=== PATIENT | male | born 1945 | race Caucasian/White ===

== ENCOUNTER 2018-09-01 12:44 | Observation (INO) | payer OTHER ==
--- NOTE | 2018-09-01 13:52 | EDPHY ---
HPI/HX/ROS/PE/MDM Narrative: CHIEF COMPLAINT: Left-sided facial numbness HPI: This patient is a 73 year old male with history of hypertension and hyperlipidemia. This morning, he was at an event and noted a metallic taste in his mouth. He then developed left sided-facial numbness "like I had a shot of novocaine". This subsided, but recurred while on the way home. At its most severe, it radiated down the left side of his neck, but this has resolved. Currently he continues to feel some numbness from cheek to chin. He denies any headache or visual changes. No numbness or weakness in legs. No chest pain or shortness of breath. He endorses neuropathy in his feet which has been ongoing for two years. He denies any history of diabetes. He denies any recent illness or trauma. REVIEW OF SYSTEMS: A comprehensive 10 system review of systems is otherwise negative aside from elements mentioned in the history of present illness and medical decision making. PMH: Hypertension, hyperlipidemia. SOCIAL HISTORY: . Retired. Does not abuse tobacco, drugs, or alcohol. PHYSICAL EXAM: General:Patient is alert, in no acute distress. ENT:Eyes are normal to inspection. ENT inspection normal. Neck: Normal inspection. Full range of motion. Respiratory:No respiratory distress. Breath sounds normal bilaterally. Cardiovascular: Regular rate and rhythm. Strong peripheral pulses. Normal cap refill. Abdomen:The abdomen is nontender to palpation. There are no peritoneal signs. There are normal bowel sounds. Back: Normal to inspection. No tenderness to palpation. Skin: Normal color. No rash. Warm and dry. Extremities: Normal appearance. Full range of motion. Neuro: Oriented x3. Subjective mild decrease in sensation on left face, otherwise normal sensory function. Normal motor function. Normal finger-to- nose. No pronator drift. ED Course: 73 y/o male presents with left-sided facial numbness beginning this morning. On exam, the patient has subjective mild decrease in sensation on left face, but is otherwise neurologically intact. Plan for CT head, CTA head/neck, EKG, labs including CBC, chemistries, POC troponin, i-stat chemistries. EKG was ordered and interpreted by myself. Please see Superproton[employer] system for official reading. 14:[address] Orellana, radiologist. CT shows cerebrovascular atherosclerosis. CTAs pending. 14:[address] Orellana, radiologist. CTA shows moderate to severe stenosis of the left ICA without complete occlusion. Otherwise largely unremarkable. 15:[address] Thompson, neurologist. We agree that the patient's NIH scale is low to the point that TPA is not indicated at this time. Dr. Thompson recommends MRI and admission for further evaluation. 15:18 Reassessed patient. Discussed imaging results. We discussed the plan for admission and further workup. He is amenable to this. 15:36 Spoke with hospitalist service. Dr. Farrell accepts admission for facial numbness. - Data Points Imaging Results: Imaging Impressions Head CT 09/01/18 00:00 Impression: 1. Cerebrovascular atherosclerosis. 2. Otherwise normal CT brain without contrast. 3. Consider MRI of the brain, if there is continued clinical concern. Findings and recommendations discussed with Emergency Department physician, Kris Marte MD at 14:45 hour, 09/01/2018. Final report concurs with initial preliminary interpretation. Head CTA 09/01/18 13:53 Impression: 1. Severe atherosclerotic stenosis of the proximal left internal carotid artery approximately 70-90%. Recommend follow-up cardiovascular surgery consult. 2. Mild atherosclerotic disease right carotid bulb without significant stenosis. 3. Atherosclerotic disease involving the left vertebral artery proximally and distally without complete occlusion. 4. Dominant patent right vertebral artery and patent basilar artery. Measurement of carotid stenosis is based on the residual internal carotid diameter with [place] Symptomatic Carotid Endarterectomy Trial (NASCET) based stenosis levels. CT Angiogram of the Brain Clinical Indications: left-sided facial numbness Technique: CT angiogram of the brain and neck was performed with the uneventful intravenous administration of 85 mL Isovue-370 contrast. Multiplanar reconstructions including 3D reconstructions performed and evaluated on [employer] workstation in order to better evaluate the [place] vessels. Images were manipulated by the radiologist at the computer workstation. Dose reduction techniques were utilized. Findings: Major vessels of the [place] are adequately displayed, demonstrating no evidence of aneurysm, vascular malformation, flow-limiting stenosis, or occlusion. Bilateral cavernous internal carotid arteries and vertebrobasilar system demonstrates no evidence of flow-limiting stenosis, aneurysm, occlusion, or dissection. Superior sagittal sinus, transverse sinuses , and major veins demonstrate no evidence of intraluminal thrombi. Mild cerebrovascular calcified plaque bilateral cavernous internal carotid arteries. Impression: 1. Cerebrovascular atherosclerosis. 2. No intraluminal thrombi or complete occlusion of the [place] vessels. Findings and recommendations discussed with Emergency Department physician, Kris Marte MD at 1450 hour, 09/01/2018. Final report concurs with initial preliminary interpretation. Neck CTA 09/01/18 13:53 Impression: 1. Severe atherosclerotic stenosis of the proximal left internal carotid artery approximately 70-90%. Recommend follow-up cardiovascular surgery consult. 2. Mild atherosclerotic disease right carotid bulb without significant stenosis. 3. Atherosclerotic disease involving the left vertebral artery proximally and distally without complete occlusion. 4. Dominant patent right vertebral artery and patent basilar artery. Measurement of carotid stenosis is based on the residual internal carotid diameter with [place] Symptomatic Carotid Endarterectomy Trial (NASCET) based stenosis levels. CT Angiogram of the Brain Clinical Indications: left-sided facial numbness Technique: CT angiogram of the brain and neck was performed with the uneventful intravenous administration of 85 mL Isovue-370 contrast. Multiplanar reconstructions including 3D reconstructions performed and evaluated on [employer] workstation in order to better evaluate the [place] vessels. Images were manipulated by the radiologist at the computer workstation. Dose reduction techniques were utilized. Findings: Major vessels of the [place] are adequately displayed, demonstrating no evidence of aneurysm, vascular malformation, flow-limiting stenosis, or occlusion. Bilateral cavernous internal carotid arteries and vertebrobasilar system demonstrates no evidence of flow-limiting stenosis, aneurysm, occlusion, or dissection. Superior sagittal sinus, transverse sinuses , and major veins demonstrate no evidence of intraluminal thrombi. Mild cerebrovascular calcified plaque bilateral cavernous internal carotid arteries. Impression: 1. Cerebrovascular atherosclerosis. 2. No intraluminal thrombi or complete occlusion of the [place] vessels. Findings and recommendations discussed with Emergency Department physician, Kris Marte MD at 1450 hour, 09/01/2018. Final report concurs with initial preliminary interpretation. Brain MRI 09/01/18 15:36 Impression: Normal MRI of the brain without contrast. Findings and recommendations discussed with Emergency Department physician, Kris Marte MD at 17:15 hour, 09/01/2018. Final report concurs with initial preliminary interpretation. Imaging: Discussed imaging studies w/ [employer] sales consultant Radiologist Laboratory Results: Laboratory Results 09/01/18 13:30 09/01/18 13:30 09/01/18 09/01/18 09/01/18 14:07 13:39 13:30 WBC RBC Hgb POC Hgb 16.0 gm/dL gm/dL (13.7-17.5) Hct POC Hct 47 % % (40-51) MCV MCH MCHC RDW Plt Count MPV Neut % (Auto) Lymph % (Auto) Cherry % (Auto) Eos % (Auto) Baso % (Auto) Nucleat RBC Rel Count Absolute Neuts (auto) Absolute Lymphs (auto) Absolute Monos (auto) Absolute Eos (auto) Absolute Basos (auto) Absolute Nucleated RBC Immature Gran % Immature Gran # POC Sodium 142 mEq/L mEq/L (135-145) Sodium 139 mEq/L mEq/L (135-145) POC Potassium 4.3 mEq/L mEq/L (3.3-5.0) Potassium 4.5 mEq/L mEq/L (3.5-5.2) POC Chloride 107 mEq/L mEq/L (97-110) Chloride 105 mEq/L mEq/L (97-110) Carbon Dioxide 24 mEq/l mEq/l (22-31) POC Total CO2 25 mEq/L mEq/L (22-31) Anion Gap 10 mEq/L mEq/L (6-14) POC BUN 25 mg/dL H mg/dL (7-23) BUN 26 mg/dL H mg/dL (7-23) Creatinine 1.3 mg/dL mg/dL (0.7-1.3) POC Creatinine 1.4 mg/dL H mg/dL (0.7-1.3) Estimated GFR 54 Glucose 123 mg/dL H mg/dL (70-100) POC Glucose 128 mg/dL H mg/dL (70-100) Calcium 9.8 mg/dL mg/dL (8.5-10.4) POC Troponin I 0.00 ng/mL ng/mL (0.00-0.08) 09/01/18 13:30 WBC 6.46 10^3/uL 10^3/uL (3.80-9.50) RBC 4.90 10^6/uL 10^6/uL (4.40-6.38) Hgb 15.3 g/dL g/dL (13.7-17.5) POC Hgb Hct 45.4 % % (40.0-51.0) POC Hct MCV 92.7 fL fL (81.5-99.8) MCH 31.2 pg pg (27.9-34.1) MCHC 33.7 g/dL g/dL (32.4-36.7) RDW 14.1 % % (11.5-15.2) Plt Count 215 10^3/uL 10^3/uL (150-400) MPV 10.9 fL fL (8.7-11.7) Neut % (Auto) 52.9 % % (39.3-74.2) Lymph % (Auto) 33.3 % % (15.0-45.0) Cherry % (Auto) 10.7 % % (4.5-13.0) Eos % (Auto) 1.7 % % (0.6-7.6) Baso % (Auto) 1.1 % % (0.3-1.7) Nucleat RBC Rel Count 0.0 % % (0.0-0.2) Absolute Neuts (auto) 3.42 10^3/uL 10^3/uL (1.70-6.50) Absolute Lymphs (auto) 2.15 10^3/uL 10^3/uL (1.00-3.00) Absolute Monos (auto) 0.69 10^3/uL 10^3/uL (0.30-0.80) Absolute Eos (auto) 0.11 10^3/uL 10^3/uL (0.03-0.40) Absolute Basos (auto) 0.07 10^3/uL 10^3/uL (0.02-0.10) Absolute Nucleated RBC 0.00 10^3/uL 10^3/uL (0-0.01) Immature Gran % 0.3 % % (0.0-1.1) Immature Gran # 0.02 10^3/uL 10^3/uL (0.00-0.10) POC Sodium Sodium POC Potassium Potassium POC Chloride Chloride Carbon Dioxide POC Total CO2 Anion Gap POC BUN BUN Creatinine POC Creatinine Estimated GFR Glucose POC Glucose Calcium POC Troponin I Medications Given: Sodium Chloride (Ns) 1,000 mls @ 100 mls/hr IV CONT CRUZITO Stop: 09/02/18 02:14 Last Admin: 09/01/18 17:29 Dose: 1,000 mls Point of Care Test Results: Chemistry 09/01/18 09/01/18 14:07 13:39 POC Sodium 142 mEq/L mEq/L (135-145) POC Potassium 4.3 mEq/L mEq/L (3.3-5.0) POC Chloride 107 mEq/L mEq/L (97-110) POC Total CO2 25 mEq/L mEq/L (22-31) POC BUN 25 mg/dL H mg/dL (7-23) POC Creatinine 1.4 mg/dL H mg/dL (0.7-1.3) POC Glucose 128 mg/dL H mg/dL (70-100) POC Troponin I 0.00 ng/mL ng/mL (0.00-0.08) ISTAT H&H 09/01/18 13:39 POC Hgb 16.0 gm/dL gm/dL (13.7-17.5) POC Hct 47 % % (40-51) General Time Seen by Provider: 09/01/18 13:26 Initial Vital Signs: Initial Vital Signs Temperature (C) 36.8 C 09/01/18 12:50 Heart Rate 76 09/01/18 12:50 Respiratory Rate 16 09/01/18 12:50 Blood Pressure 156/90 H 09/01/18 12:50 O2 Sat (%) 92 09/01/18 12:50 O2 Delivery Mode Room Air Allergies/Adverse Reactions: No Known Allergies Allergy (Unverified 09/01/18 12:48) Home Medications: Medication Instructions Recorded Aspirin EC [Aspirin EC 81 mg (*)] 81 mg PO HS 09/01/18 Atorvastatin Calcium [Lipitor 10 10 mg PO HS 09/01/18 mg (*)] Cetirizine [ZyrTEC 10 mg (*)] 10 mg PO HS 09/01/18 Gabapentin [Neurontin 300 MG (*)] 600 mg PO HS 09/01/18 Herbals/Supplements -Info Only 1 ea PO DAILY 09/01/18 Lisinopril [Zestril 40 mg (*)] 40 mg PO DAILY 09/01/18 [place]-3 Fatty Acids [Fish Oil 1000 1,000 mg PO BID 09/01/18 mg (*)] Omeprazole 40 mg PO DAILY 09/01/18 Departure - Departure Disposition: [facility] Report Scribed for: Kris Marte Report Scribed by: Idania Sparks Date of Report: 09/01/18 Time of Report: 13:52 Physician Review and Approval Statement: Portions of this note were transcribed by an ED scribe. I personally performed the history, physical exam, and medical decision making; and confirm the accuracy of the information in the transcribed note.
[2018-09-01 14:06] LABS: PLATELET COUNT 215 10^3/uL (150-400)
[2018-09-01] MEDS ORDERED: IOPAMIDOL (ISOVUE 370) 100 ML BTL IV ONE (14:19)
[2018-09-01] MEDS ORDERED: LABETALOL HCL 5 MG/ML 20 ML MDV IVP PRN (15:39)
[2018-09-01] MEDS ORDERED: ONDANSETRON 4 MG/2 ML VIAL IVP PRN (15:39)
[2018-09-01] MEDS ORDERED: ACETAMINOPHEN 325 MG TAB PO PRN (15:39)
[2018-09-01] MEDS ORDERED: ONDANSETRON DISINTEGRATING 4 MG TAB PO PRN (15:39)
[2018-09-01] MEDS ORDERED: NS 1,000 ML IV SCH (16:15)
--- NOTE | 2018-09-01 16:34 | GHP ---
[f rep st] HISTORY AND PHYSICAL DATE OF ADMISSION: 09/01/2018 CHIEF COMPLAINT: Left facial numbness. HISTORY OF PRESENT ILLNESS: A 73-year-old male with hypertension, hyperlipidemia, obesity, presenting with left facial numbness. He and his live in [place] in the winter, and were headed through [place] to visit their son. They were at their grandson's [facility] [employer] [facility] at 10 a.m. and he noticed a metallic taste along with left facial numbness, which he describes as feeling after getting Novocain from the dentist. Symptoms improved, however, an hour later involved the whole left side of his face. Denies dysarthria, aphasia, or focal weakness. Reports feeling lightheaded yesterday. Denies chest pain, shortness of breath, nausea, vomiting, or diarrhea. He says numbness is nearly resolved during my interview. CTA demonstrated [id number] left carotid artery stenosis 70% to 90%. REVIEW OF SYSTEMS: I completed a 10-point review of systems and negative except as noted in HPI. PAST MEDICAL HISTORY: Left shoulder issues, hypertension, hyperlipidemia, obesity. PAST SURGICAL HISTORY: Left total hip arthroplasty, right ureter, lumbar spine x2, tonsillectomy, knee arthroscopic surgery. SOCIAL HISTORY: Lives in [place] in the winter and [place] the rest of time. Smoked remotely in college. Drinks 1 to 2 beers a day. FAMILY HISTORY: Paternal grandfather stroke at age 80. Mother with CVA. Dad with hyperlipidemia and hypertension. ALLERGIES: None. HOME MEDICATIONS: Zyrtec, vitamin B12, lisinopril, gabapentin, fish oil, atorvastatin. PHYSICAL EXAMINATION: VITAL SIGNS: Temperature 36.4 blood pressure 166/86, heart rate in the 60s, respirations 16, and 95% on room air. GENERAL: He is well appearing, obese, no acute distress. HEENT: PERRLA. Moist mucous membranes. CARDIOVASCULAR: Regular rate and rhythm. No murmurs, gallops, or rubs. LUNGS: Clear. ABDOMEN: Obese, soft, nontender, nondistended. Positive bowel sounds. GENITOURINARY: No [place]. MUSCULOSKELETAL: 5/5 upper and lower extremity strength. NEUROLOGICAL: 2 through 12 intact. Left facial numbness noted with soft touch. Negative pronator drift. No facial droop. PSYCHIATRIC: Alert and oriented x3. LABORATORY DATA: WBC 6.4, hemoglobin 15, hematocrit 45, platelets 215. Sodium 142, potassium 4.3, chloride 107, carbon dioxide 24, BUN 25, creatinine is 1.4 ( I do not have baseline), glucose 128. Troponin 0.0. Head CT: Cerebrovascular atherosclerosis. EKG personally reviewed by me: Low voltage, normal sinus rhythm, T-wave inversion in lead III and flattening in aVF. Head and neck CTA: Severe atherosclerotic stenosis of proximal left internal carotid artery 70% to 90%. Mild atherosclerotic disease right carotid bulb without significant stenosis. ASSESSMENT AND PLAN: 1. Transient ischemic attack: Suspect due to left internal carotid artery stenosis. MRI brain and echocardiogram pending. Monitor on telemetry. Physical Therapy, Occupational Therapy, and Speech evaluations. Check lipid panel. Neurology and Surgery consult. 2. Hypertension: Hold lisinopril with acute kidney injury. 3. Acute kidney injury: Endorsed lightheadedness. Likely dehydrated. We will give IV fluids and repeat in the morning. 4. Hyperlipidemia: Statin. 5. Disposition: Patient warrants observation admission for transient ischemic attack warranting further evaluation and surgical consult. /[id number]/MODL MTDD
[2018-09-01] MEDS: OMEGA-3 FATTY ACIDS 1,000 MG CAP PO SCH (20:42)
--- NOTE | 2018-09-01 20:59 | GCON ---
[f rep st] CONSULTATION DATE OF CONSULTATION: 09/01/2018 REFERRING PHYSICIAN: Sanna Farrell MD REASON FOR EVALUATION: Symptomatic carotid stenosis. HISTORY OF PRESENT ILLNESS: 73-year-old male traveling en route from [place] back home to [place], [place], where he lives, presents to the emergency room today with a 2-hour prodrome of left facial numbness along with left jaw drooping as witnessed by family members. He denies complaints of headaches or visual changes. He denies any amaurosis type symptoms. He denies any lateralizing right side neurologic symptoms. He denies any difficulty with swallowing, word-finding or comprehension. He denied associated chest pains or shortness of breath. He denies any antecedent similar symptoms. The patient is right-handed. He does have a significant history for hypertension. Upon ER arrival, his facial numbness had essentially resolved. He was still noted to have small left lower lip weakness. PAST MEDICAL HISTORY: 1. Hypertension. 2. Hyperlipidemia. PAST SURGICAL HISTORY: Left total hip arthroplasty, right ureteral reconstruction, post remote trauma, lumbar spine instrumentation, tonsillectomy , knee arthroscopy. HOME MEDICATIONS: 1. Atorvastatin. 2. Lisinopril. 3. Fish oil. 4. Gabapentin. 5. Vitamin B12. 6. Zyrtec. 7. Aspirin. ALLERGIES: No known drug allergies. SOCIAL HISTORY: The patient is retired. No significant alcohol. He has not smoked in many years. REVIEW OF SYSTEMS: Notable for acute GI complaints only. The patient is generally ambulatory, without exertional dyspnea, claudication, or rest pain symptoms. PHYSICAL EXAMINATION: VITAL SIGNS: Temperature 36.7, blood pressure 157/88, heart rate 73, respirations 16. GENERAL: Patient is alert appropriate, comfortable at present time, anicteric. HEENT: Pupils are equally round, reactive to light and accommodation. Extraocular muscles are intact. Smile slightly asymmetric with subtle left lower jaw drooping. Tongue midline. Speech normal. HEART: Regular without murmurs. LUNGS: Clear bilaterally. ABDOMEN: Soft, slightly obese, nontender. No pulsatile masses. No bruits. 2 + radial, brachial, carotid, femoral, popliteal, and posterior tibial pulses, bilateral dorsalis pedis pulses not palpable. NEUROLOGIC: Exam notable for left angle of jaw weakness; otherwise, cranial nerves 2-12 noted intact. Slight diminished sensation of left foot and lower leg. Normal sensation right upper and lower extremity. Cervical, thoracic, and lumbar spines nontender. IMAGING: CT images were directly reviewed on [facility], as well as brain MRI. Approximately 70% to 90% left ICA stenosis with mostly calcified plaque, patent bilateral vertebral arteries. Head CT unremarkable for acute infarct. Brain MRI unremarkable. LABS: WBC 6, Hb 15, PLT 215. Na 142, K 4.3, CL 107, BUN 25, Cr 1.4 IMPRESSION: Symptomatic left carotid stenosis with transient ischemic attack symptoms. Elevated Creatinine. RECOMMENDATIONS: Would recommend consideration for left carotid endarterectomy once patient returns home to [place] given his current self-limited neurologic event in this lower risk patient with symptomatic high-grade left carotid stenosis. He is currently on best medical therapy, including lipid-lowering agent and aspirin, as well as blood pressure management. I would also recommend consideration for a cardiac risk assessment as well upon return to home. No further acute surgical recommendations necessary at this time. These findings and recommendations were discussed in detail with the patient at bedside. All of his questions were entertained. Please call if I can be of further assistance while the patient remains in [place]. Copies of his imaging and records will be provided for him to bring to his local providers. IV hydration being provided with repeat labs in am regarding his elevated creatinine. /[id number]/MODL MTDD
[2018-09-01] MEDS ORDERED: CETIRIZINE 10 MG TAB PO SCH (21:00)
[2018-09-01] MEDS ORDERED: ATORVASTATIN CALCIUM 10 MG TAB PO SCH (21:00)
[2018-09-01] MEDS ORDERED: GABAPENTIN 300 MG CAP PO SCH (21:00)
[2018-09-01] MEDS ORDERED: ASPIRIN EC 81 MG TAB PO SCH (21:00)
[2018-09-02] MEDS: OMEGA-3 FATTY ACIDS 1,000 MG CAP PO SCH (08:13)
[2018-09-02] MEDS ORDERED: PANTOPRAZOLE SODIUM 40 MG TAB PO SCH (09:00)
[2018-09-02] MEDS ORDERED: Herbals/Supplements -Info Only PO SCH (09:00)
[2018-09-02 11:38] VITALS: BP 131/85
--- NOTE | 2018-09-02 13:11 | GCON ---
[f rep st] CONSULTATION NEUROLOGY CONSULT DATE OF CONSULTATION: 09/02/2018 REFERRING PHYSICIAN: Sanna Farrell MD CHIEF COMPLAINT: Left facial numbness. HISTORY OF PRESENT ILLNESS: Mr. Wu is a very pleasant gentleman who lives in the [facility], and was traveling through when he developed left facial numbness yesterday. The initial symptoms were a funny taste in his mouth and then he progressively developed a sensation of numbness over his left face that felt like "Novocain." It came on fairly slowly and then lasted about 2 hours and then slowly resolved. There was no headache associated with this. He came to the emergency department and had an acute evaluation. The patient had a head CT without contrast which showed no acute findings. CT angio of the head showed cerebral vascular atherosclerosis without large vessel occlusion. CTA of the neck showed severe atherosclerotic stenosis of the proximal left internal carotid artery, approximately 70% to 90%. The right carotid bulb had mild atherosclerosis without significant stenosis. He also has some atherosclerotic stenosis in the left vertebral artery. His symptoms resolved as noted above and he has had no recurrent symptoms overnight. At baseline, he takes a baby aspirin along with statin and blood pressure medication. He follows with a primary care physician in [place], [place]. REVIEW OF SYSTEMS: A 10-point review of systems was done and only pertinent to the HPI. For past medical history, social history, family history, home medications see Dr. Farrell's H and P. He was seen by Dr. Manzo of vascular surgery regarding his carotid stenosis as well. Please see his consult note for details. PHYSICAL EXAMINATION: VITAL SIGNS: Blood pressure 131/85, temperature 36.7, heart rate 60. GENERALLY: This patient is very pleasant, no acute distress. He was getting echocardiogram during my exam. Therefore, it was somewhat limited. NEUROLOGIC: Higher mental function is normal. No aphasia. Cranial nerve exam is normal 2 through 7 and 12. There is no longer any facial numbness. Motor exam is normal in terms of strength in all 4 limbs. No abnormal sensory exam in terms of light touch to his limbs. Coordination is normal in upper and lower extremities. IMPRESSION/PLAN: 1. Transient neurologic symptoms, resolved. 2. Left internal carotid artery stenosis (70% to 90%). The patient's clinical syndrome of transient left facial numbness is not in the left internal carotid artery vascular territory. Therefore, his left ICA stenosis would be considered asymptomatic. 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 The patient is getting echocardiogram now. Going forward, if there are no significant abnormalities on echocardiogram ( such as intracardiac thrombus, etc.), then the plan is the patient would like to discharge home and get back to [place] for medical care. We will discharge him on dual anti-platelet therapy for additional vascular prophylaxis. He will be on aspirin 81 mg daily plus Plavix 75 mg daily. We discussed potential risks, benefits and alternatives of dual anti-platelet therapy including the risk of bleeding and bruising. He will continue statin and antihypertensive medications. He has agreed to the plan of following with his PCP and get a referral to Cardiology and Neurology along with Vascular Surgery once he gets back to [place]. He will need consideration for endarterectomy of his left ICA stenosis , which would be considered asymptomatic at this point. He also needs further monitoring for possible right hemisphere TIA with a 30- day event monitor to screen for paroxysmal atrial fibrillation; if that is negative, consider an implantable loop monitor for ongoing PAF surveillance. No further recommendations now. The plan was discussed in detail with the patient, the hospitalist and we will follow up as needed. Please do not hesitate to call if there are any questions regarding his echocardiogram or anything in general or changes in this patient's neurology status. We appreciate the consultation. Seventy total minutes floor time today; over 50% in direct counseling and coordination of care with this patient. /[id number]/MODL MTDD
--- NOTE | 2018-09-02 14:59 | ECHO ---
[email or web address] [address] [address] Main: [phone] Echocardiography Examination Transthoracic Name: LALO MIRAMONTES MR#: [id number] Study Date: 09/02/2018 Study Time: 12:12 PM Date of : 1945 Age: 73 year(s) Height: 180.3 cm (71 in.) Weight: 102.06 kg (225 lb.) BSA: 2.22 m2 Gender: Male Examination: Echo with Agitated Saline Contrast: Image Quality: Technically Difficult Rhythm: Heart Rate: BP: 131 mmHg/85 mmHg Indication: TIA Procedure Staff Referring Physician: Digital Solutions Architect: Sanna Hoffman [facility] Reading Physician: Quinton Ryan MD Requesting Provider: Ordering Physician: Sanna Farrell Indication: TIA Technically difficult due to body habitus Measurements Chambers AV/MV Label Value Normal Value Label Value Normal Value LVOTd 2.4 cm (1.9cm - 2.1cm) AV PGmax 5 mmHg LVOT VTI 17.6 cm (18cm - 22cm) AV PGmean 3 mmHg LVDd, 2D 5 cm (4.2cm - 5.9cm) AV Vmax 1.07 m/s LVDs, 2D 3.1 cm (2.1cm - 4cm) JOSEPH (VTI) 3.3 cm2 IVSd, 2D 1.1 cm (0.6cm - 1.1cm) MV E Vmax 0.56 m/s LVPWd, 2D 1.1 cm (0.6cm - 1cm) MV A Vmax 0.76 m/s LVEF, 2D 67 % (54% - 74%) MV E/A 0.74 LVOT PGmean 2 mmHg MV E/E' lateral 7 LVOT Vmean 0.65 m/s MV E/E' septal 9 (0.45 - 1.25) RVDd, 2D 3.7 cm (1.9cm - 3.8cm) MV DT 299 ms LA Volume, BP 42 ml (18ml - 58ml) MV E' septal 0.06 m/s LADs, 2D 3.5 cm (3cm - 4cm) MV PHT 0.09 s LAESV index, BP 18.9 ml/m2 MVA PHT 2.3 cm2 RA Area 14.3 cm2 MV E' lateral 0.08 m/s Additional Vessels MV E/E' mean 8 Label Value Normal Value MV PHT 94 ms AoAsc 3.3 cm MV E' mean 0.07 m/s Patient: LALO MIRAMONTES Study Date: 09/02/2018 Page 1 of 3 12:12 PM AoRoot, 2D 3.2 cm (1.4cm - 2.6cm) TV/PV IVC 2.2 cm (1.2cm - 2.3cm) Label Value Normal Value RA Pressure 5 mmHg RVSP 21 mmHg TR Pmax 16 mmHg TR Vmax 1.98 m/s PV PGmax 7 mmHg PV Vmax, Caliper 1.32 m/s (0.6m/s - 0.9m/s) Conclusions Left Ventricle: Normal global systolic left ventricular function. EF range is estimated at 55 % - 60 %. Left ventricular diastolic function parameters are normal. Right Ventricle: Mildly dilated right ventricle. Right ventricular systolic function is normal. IAS: An agitated saline study was performed and was negative for intracardiac shunting. Findings Left Ventricle: Left ventricle is normal in size. Normal global systolic left ventricular function. EF range is estimated at 55 % - 60 %. Left ventricle wall thickness is normal. There are no regional wall motion abnormalities. Left ventricular diastolic function parameters are normal. No LV hypertrophy. Right Ventricle: Mildly dilated right ventricle. Right ventricular systolic function is normal. Left Atrium: The left atrium is normal in size. IAS: An agitated saline study was performed and was negative for intracardiac shunting. Right Atrium: The right atrium is normal in size. Mitral Valve: Mitral valve appears structurally normal. Trivial mitral regurgitation. No mitral valve stenosis. Aortic Valve: Aortic leaflets are structurally normal. Trivial aortic regurgitation is present. There is no aortic stenosis. There is aortic sclerosis present. Tricuspid Valve: Tricuspid valve leaflets are structurally normal. Trivial tricuspid regurgitation. No tricuspid valve stenosis. Right Ventricular systolic pressure is measured at 21 mmHg. Pulmonary artery pressure normal. Pulmonic Valve: Pulmonic leaflets are normal in appearance. Trivial pulmonic valve regurgitation is present. Aorta: The aortic root size in 2D measures 3.2 cm. The ascending aorta measures 3.3 cm. Aorta Measurements AoRoot, 2D is 3.2 cm. IVC: The inferior vena cava is normal in size. Patient: LALO MIRAMONTES Study Date: 09/02/2018 Page 2 of 3 12:12 PM Pericardium: A pericardial fat pad is present. No pericardial effusion. Exam Details Procedure Ordered: Echo with Agitated Saline Procedure Status: Routine study Image Quality: Technically Difficult Facility Location: Cardiac Echo 1 (No Signature Object) Patient: LALO MIRAMONTES Study Date: 09/02/2018 Page 3 of 3 12:12 PM [id number]
--- NOTE | 2018-09-02 15:11 | ASMTLACE ---
LACE Length of stay for Answers: 2 days current admission Acuity / Level of Answers: No Care: Did the patient have an inpatient admission? Comorbidities - select Answers: Other Notes: HTN, HLD all that apply # of Emergency department Answers: 0 visits in the last 6 months Score: 3 Date Signed: 09/02/2018 03:10 PM Electronically Signed By:MEHDI Madison
--- NOTE | 2018-09-02 15:12 | ASMTCMCOM ---
CM Note CM Note Notes: Pt came in for facial numbness, he is visiting son in [place]. Pt and spouse reside in [place], [place] sung and will go to [place] at d/c. Pt will follow up with KATHERINE [place] at the [facility] and get referrals for cardiology and neurology. OT/PT/SCRAP DROP OPERATOR clear pt for home. No CM d/c needs identified. Date Signed: 09/02/2018 03:12 PM Electronically Signed By:MEHDI Madison
--- NOTE | 2018-09-02 15:31 | GDS ---
[f rep st] DISCHARGE SUMMARY CHIEF COMPLAINT: Left facial numbness. DISCHARGE DIAGNOSES: 1. Transient neurological symptoms, resolved. 2. Left internal carotid artery stenosis. CONSULTATIONS: 1. Neurology. 2. Surgery. STUDIES AND PROCEDURES DONE: 1. CT of the head. 2. CT angio of the head and neck. 3. MRI of the brain. 4. Echocardiogram. PHYSICAL EXAM: GENERAL: The patient is alert. VITAL SIGNS: Afebrile, 36.7. Pulse is 66, respirat ory rate 17. Blood pressure is 131/85. He is saturating 94% on room air. I have seen and evaluated the patient on the day of discharge. HOSPITAL COURSE: The patient is a 73-year-old male who presented to the emergency room with complain ts of left facial numbness. He was evaluated and diagnosed with: 1. Transient neurological symptoms. During this hospital course, he received a thorough evaluation. The patient's symptoms have completely resolved, and he has returned to his baseline. He did recei ve consultation from Neurology. It is recommended that he continue on aspirin, as well as Plavix. C an follow up in the outpatient setting with his primary care provider. 2. Left internal carotid artery stenosis. This is occluded 70% to 90%. It is recommended the patie nt have a carotid endarterectomy. He wishes to return to [place] where he normally resides and will follow up with a vascular surgeon there. 3. Hypertension. The patient's blood pressure is well managed prior to disposition. 4. Renal failure. The patient's baseline renal function is unclear. It was recommended he refrain from lisinopril and be placed on different antihypertensive medications if needed. 5. Hyperlipidemia. The patient is on Lipitor and will follow with his primary care physician. 6. Disposition. The patient will be discharged independently to follow up in the outpatient setting in [place] where he normally resides. DISCHARGE MEDICATIONS: Please refer to EMR form. I have provided a prescription for the patient for Plavix at the time of disposition. I have reviewed the patient's disposition with Cardiology, as well as Surgery and Neurology, who are all in agreement with the plan. /[id number]/MODL
--- NOTE | 2018-09-06 19:15 | CPEKG ---
Test Reason : OPEN Blood Pressure : / mmHG Vent. Rate : 071 BPM Atrial Rate : 071 BPM P-R Int : 162 ms QRS Dur : 100 ms QT Int : 385 ms P-R-T Axes : -19 -16 -03 degrees QTc Int : 419 ms Sinus rhythm Borderline left axis deviation Low voltage, precordial leads Confirmed by Kris Marte ([id number] on 09/06/2018 7:15:27 PM Referred By: Kris Marte Confirmed By:Kris Marte
== END 2018-09-02 16:18 | disposition home or self-care (01) ==
LOC: F3N 16:59
PROVIDERS: ADMIT Internal Medicine; ATTEND Internal Medicine
DX: R20.0 Anesthesia of skin (principal); I65.29 Occlusion and stenosis of unspecified carotid artery; I10 Essential (primary) hypertension; N17.9 Acute kidney failure, unspecified; E78.5 Hyperlipidemia, unspecified; Z96.642 Presence of left artificial hip joint; E86.9 Volume depletion, unspecified
CPT/HCPCS: 70450; 70496; 70498; 70551; 92523; 93306; 97161; 97165; 99285; G0378; Q9967; 82435-PO; 82565-PO; 82947-PO; 84132-PO; 84295-PO; 84484-ER; 84520-PO; 85014-ER